=== PATIENT | female | born 1955 | race Caucasian/White ===

== ENCOUNTER 2020-05-01 09:22 | Emergency (ER) | payer OTHER, BC ==
[2020-05-01 09:56] VITALS: BP 149/94; PULSE 74; TEMP 99.4; BMI 43.4
[2020-05-01 10:04] LABS: EPITHELIAL CELLS MODERATE /hpf
--- NOTE | 2020-05-01 10:17 | PDOC ---
History of Present Illness - General Chief Complaint: Pain, Acute Stated Complaint: STOMACH PAIN Time Seen by Provider: 05/01/20 09:35 History Source: Patient Exam Limitations: No Limitations - History of Present Illness Initial Comments: 05/01/20 10:13 65-year-old female history of obesity hypertension anxiety here today complaining of sudden onset epigastric pain radiating across the upper abdomen as well as to the back lasted about 30 minutes no associated nausea vomiting denies any associated chest pressure tightness or pain no shortness of breath no diaphoresis did not have any nausea or vomiting since then the pain has completely resolved. In the past she has had elevated LFTs suspected fatty liver and has been referred for an ultrasound of the gallbladder for suspected cholelithiasis however has not had the test performed yet. Patient states she is extremely anxious and nervous to undergo any sort of tests or surgeries therefore has put off many of her outpatient screening examinationsDenies any fevers chills nausea vomiting no urinary complaints Past History - Medical History Allergies/Adverse Reactions: Allergies Allergy/AdvReac Type Severity Reaction Status Date / Time Sulfa (Sulfonamide Allergy Verified 05/01/20 09:23 Antibiotics) Home Medications: Ambulatory Orders Alprazolam [Xanax -] 0.5 mg PO TID PRN 12/02/13 Calcium Carbonate [Gaviscon] 200 mg PO DAILY 12/02/13 Hydrochlorothiazide [Hctz -] 1 tab PO DAILY 12/02/13 Metoprolol Succinate [Toprol XL -] 1 tab PO DAILY 12/02/13 Ramipril 1 tab PO DAILY 12/02/13 COPD: No Disorders: Yes (ACID REFLUX) HTN: Yes Psychiatric Problems: Yes (ANXIETY) - Reproductive History Is Patient Now?: No - Psycho-Social/Smoking History Smoking History: Never smoked Have you smoked in the past 12 months: No Number of Cigarettes Smoked Daily: 0 Information on smoking cessation initiated: Yes - Substance Abuse Hx (Audit-C & DAST Scrn) How often the patient has a drink containing alcohol: Never Score: In Men: 4 or > Positive; In Women: 3 or > Positive: 0 Screen Result (Pos requires Nsg. Audit-10AR): Negative In the last yr the pt used illegal drug/Rx for NonMed reason: No Score: Yes response is considered Positive: 0 Screen Result (Positive result requires Nsg. DAST-10): Negative Review of Systems - Review of Systems Constitutional: No: Chills, Fever HEENTM: No: Eye Pain Respiratory: No: Cough, Shortness of Breath Cardiac (ROS): No: Chest Pain ABD/GI: Yes: Abdominal cramping, Other. No: Diarrhea, Nausea, Vomiting : No: Burning, Dysuria, Discharge Musculoskeletal: No: Back Pain, Gout, Joint Pain All Other Systems: Reviewed and Negative *Physical Exam - Vital Signs Last Vital Signs Temp Pulse Resp BP Pulse Ox 99.4 F 74 20 149/94 98 05/01/20 09:23 05/01/20 09:23 05/01/20 09:23 05/01/20 09:23 05/01/20 09:23 - Physical Exam 05/01/20 10:15 Awake alert no acute distress lungs are clear bilaterally heart is regular 30 murmurs rubs or gallops abdomen is soft and relatively nontender there is no CVA tenderness extremities are warm well perfused patient is awake alert and oriented x3 skin is warm and dry no rash Heart Score/ECG Review #1 General ECG Interpretation: Sinus Rhythm, Normal Rate (65), Normal Intervals, No acute ischemic changes ED Treatment Course - LABORATORY CBC & Chemistry Diagram: 05/01/20 10:34 05/01/20 10:34 - ADDITIONAL ORDERS Additional order review: Laboratory Results 05/01/20 09:41 Urine Color Prema Urine Appearance Clear Urine pH 6.0 Urine Protein 1+ H Urine Glucose (UA) Negative Urine Ketones Negative Urine Blood Trace-intact Urine Nitrite Negative Urine Bilirubin 2+ H Urine Urobilinogen 1.0 Ur Leukocyte Esterase 1+ Urine RBC 2-5 Urine WBC 60-80 Ur Transition Epith Cell Moderate Urine Bacteria Moderate Medical Decision Making - Medical Decision Making 05/01/20 10:15 65-year-old female history of obesity hypertension abnormal LFTs in the past suspected cholelithiasis here with epigastric pain has since resolved differential includes peptic ulcer disease duodenal ulcer biliary colic pancreatitis cholecystitis considered however less likely due to the absence of tenderness on her current exam plan focused ED ultrasound basic labs including LFTs and lipase CBC UA to rule out UTI or Antonio Focused ED ultrasound was performed shows multiple large gallstones through majority of the gallbladder lumen. The wall is non-thickened at 3.7 mm CBD is normal for the patient's age at 5 mm negative sonographic Love's impression cholelithiasis 05/01/20 12:11 Is [address] patient's LFTs are elevated states she has had elevated LFTs in the past her bilirubin is 2.2 lipase is normal however. At this time patient states she feels much better would like to go home she was offered admission for repeat LFTs in the morning as well as a GI consult and or surgery consult she would like to go home patient's primary Dr. Cai was paged awaiting callback should be given referral for Storm Gill per the patient's daughter's request she was also given a referral for Dr. Bird the forming and assembling supervisor told to schedule appointment both of them also given strict instructions to return for worsening vomiting pain with eating fevers chills or any concerns as her LFTs are abnormal Discharge - Discharge Information Problems reviewed: Yes Clinical Impression/Diagnosis: Cholelithiasis Condition: Improved Disposition: HOME - Admission No - Follow up/Referral Referrals: Сергей Bird MD [Staff Physician] - Dallas Marti MD [Staff Physician] - Kamryn Cai MD [Staff Physician] - - Patient Discharge Instructions Patient Printed Discharge Instructions: Gallstones (Alternative Therapy) Additional Instructions: You have multiple large gallstones on your ultrasound there is no sign of infection today however. But your liver function tests are abnormal this needs to be followed up very closely with a forming and assembling supervisor as well as a surgeon if you develop any persistent pain fever vomiting you to come back immediately for repeat evaluation. Your pain will worsen with starchy or fatty food meals - Post Discharge Activity
[2020-05-01 10:57] LABS: BASO % 0.2 % (0-2.0); HEMATOCRIT 42.5 % (32.4-45.2); HEMOGLOBIN 14.1 GM/dl (10.7-15.3); LYMPH % 10.3 % (8-40); MCH 29.5 pg (25.7-33.7); MCHC 33.1 g/dl (32.0-36.0); MEAN CELL VOLUME 89.4 fl (80-96); MEAN PLT VOLUME 7.2 fl (7.5-11.1); MONO % 5.5 % (3.8-10.2); PLATELET COUNT 243 K/MM3 (134-434); RBC 4.76 M/mm3 (3.60-5.2); WHITE BLOOD COUNT 6.3 K/mm3 (4.0-10.8)
[2020-05-01 11:03] LABS: ALBUMIN 3.7 g/dl (3.4-5.0); BILIRUBIN,TOTAL 2.2 mg/dl (0.2-1); CALCIUM 9.1 mg/dl (8.5-10); CREATININE 0.8 mg/dl (0.55-1.3); POTASSIUM 3.8 mmol/L (3.5-5.1); TOT PROT 7.3 g/dl (6.4-8.2)
--- NOTE | 2020-05-03 18:30 | EKG ---
Test Reason : Blood Pressure : / mmHG Vent. Rate : 065 BPM Atrial Rate : 065 BPM P-R Int : 168 ms QRS Dur : 094 ms QT Int : 410 ms P-R-T Axes : 092 -22 016 degrees QTc Int : 426 ms NORMAL SINUS RHYTHM MODERATE VOLTAGE CRITERIA FOR LVH, MAY BE NORMAL VARIANT CANNOT RULE OUT SEPTAL INFARCT , AGE UNDETERMINED ABNORMAL ECG NO PREVIOUS ECGS AVAILABLE Confirmed by FRANSICO DIAS MD ([id number]) on 05/03/2020 6:30:25 PM Referred By: JAMES GILBERT Confirmed By:FRANSICO DIAS MD
== END 2020-05-01 12:38 | disposition home or self-care (01) ==
LOC: FER 09:22
DX: K80.80 Other cholelithiasis without obstruction (principal)
CPT/HCPCS: 36415; 76705-TC; 80053; 81003; 81015; 83690; 85025; 87086; 93005; 99284-25

== ENCOUNTER 2020-06-23 07:28 | Day surgery (SDC) | payer OTHER, BC ==
--- NOTE | 2020-05-25 09:53 | HP ---
DATE OF ADMISSION: [id number] DATE OF DICTATION: 05/04/2020 REASON FOR ADMISSION: Symptomatic cholelithiasis, history of biliary colic. BRIEF HISTORY: This is a 65-year-old female who presented to [facility] approximately a week ago with acute onset of epigastric pain with radiation to the upper abdomen and back that lasted over 30 minutes. She underwent an ultrasound that demonstrated cholelithiasis without evidence of acute cholecystitis. Her LFTs were markedly elevated and it was thought that it could be related to her fatty liver; however, it could be related to her passing a stone. In any event the patient was adamant about going home and she subsequently was discharged because of her own cognition. Since discharge the patient states she has had no further issues of abdominal pain, nausea, vomiting. No change in stool color or urine color. No fever, chills or sweats. She is now here to schedule an elective cholecystectomy. PAST MEDICAL HISTORY: Significant for hypertension, anxiety disorder. She denies coronary artery disease and diabetes. PAST SURGICAL HISTORY: Patient has had surgery on her left leg. She has had no abdominal surgeries. MEDICATIONS: Alprazolam, calcium, hydrochlorothiazide, metoprolol. ALLERGIES: To SULFA. SOCIAL HISTORY: She denies tobacco and alcohol use. PHYSICAL EXAMINATION: HEENT: There is no icterus. Abdomen: Soft, nontender, nondistended. She has no right side CVA tenderness. The abdomen is obese. IMPRESSION/PLAN: Symptomatic cholelithiasis, history of biliary colic. This is a 65-year-old female with over a 20-year history of having bouts of upper abdominal/epigastric and back pain related now retrospectively to biliary disease. Patient at this time does not have evidence of acute cholecystitis. Will plan to repeat her LFTs at this time. If they are normal, will proceed with a laparoscopic cholecystectomy electively. If the LFTs are still elevated, she will see a GI doctor and will be ruled out for a CBD stone. The indications, alternatives and complications of a laparoscopic cholecystectomy as well as an open cholecystectomy have been discussed at length. Questions have been answered. Will plan to obtain written consent the day of surgery. Shilpi HARO [id number] cc: Kamryn Cai MD
--- OUTSIDE RECORDS SUMMARY | 2020-06-23 07:31 | XMS ---
:1955 Author Organization [facility] Support Name Relationship Address Phone RE Unavailable Unavailable Unavailable YOBE Unavailable [address] [place] [address] MIMI NICOLE SON [address] [address] MIMI NICOLE Child [address] [facility] [place] [address] Re-disclosure Warning The records that you are about to access may contain information from federally- assisted alcohol or drug abuse programs. If such information is present, then the following federally mandated warning applies: This information has been disclosed to you from records protected by federal confidentiality rules (42 CFR part 2). The federal rules prohibit you from making any further disclosure of this information unless further disclosure is expressly permitted by the written consent of the person to whom it pertains or as otherwise permitted by 42 CFR part 2. A general authorization for the release of medical or other information is NOT sufficient for this purpose. The Federal rules restrict any use of the information to criminally investigate or prosecute any alcohol or drug abuse patient.The records that you are about to access may contain highly sensitive health information, the redisclosure of which is protected by Article 27-F of the [facility] Public Health law. If you continue you may haveaccess to information: Regarding HIV / AIDS; Provided by facilities licensed or operated by the [facility] Office of Mental Health; or Provided by the [facility] Office for People With Developmental Disabilities. If such information is present, then the following [facility] mandated warning applies: This information has been disclosed to you from confidential records which are protected by state law. State law prohibits you from making any further disclosure of this information without the specific written consent of the person to whom it pertains, or as otherwise permitted by law. Any unauthorized further disclosure in violation of state law may result in a fine or mcc sentence or both. A general authorization for the release of medical or other information is NOT sufficient authorization for further disclosure. Encounters Encounter Providers Location Date Indications Data Source(s ) U [id number] 02/06/2019 10:00:00 RADHA KNIGHT (Family AM EDT - 07/10/2019 [facility]) 12:51:00 PM EDT Patient discharged. Insurance Providers Payer name Policy type Policy ID Covered Covered constitution party's Policy P johny / Coverage constitution party ID relationship to [employer] type dueñas MEDICARE [id number] SP [id number] PPO [id number] SP [id number] [facility] Self Employee Plan-[facility] Results ID Date Data Source [id number] 06/19/2020 12:59:00 PM EDT [facility] Name Value Range Interpretation Description Data Sup porting Code Source(s) Document(s ) SARS [facility] coronavirus 2 RNA This lab was ordered by WYATT CORDON and reported by [facility]. Procedure
[2020-06-23 08:22] VITALS: BMI 44.2
[2020-06-23] MEDS ORDERED: DEXAMETHASONE SOD PHOSPHATE/PF 10 MG/ML SDV ONE (08:39)
[2020-06-23] MEDS ORDERED: BUPIVACAINE HCL/PF 0.5% (5 MG/ML) 30 ML VIAL IJ ONE (08:39)
[2020-06-23] MEDS ORDERED: MIDAZOLAM HCL 2 MG/2 ML SINGLE DOSE VIAL ONE (08:39)
[2020-06-23] MEDS ORDERED: SUCCINYLCHOLINE CHLORIDE 200 MG/10 ML SYRINGE ONE (09:30)
[2020-06-23] MEDS ORDERED: ceFAZolin SODIUM 1 GM VIAL ONE (09:37)
[2020-06-23] MEDS ORDERED: ONDANSETRON 4 MG/2 ML VIAL ONE ×2 (09:37→10:34)
[2020-06-23] MEDS ORDERED: DEXAMETHASONE SOD PHOSPHATE 4 MG/1 ML VIAL ONE (09:37)
[2020-06-23] MEDS ORDERED: HYDROmorphone HCL/PF 1 MG/ML VIAL ONE (09:45)
[2020-06-23] MEDS ORDERED: EPHEDRINE SULFATE/0.9% NACL/PF 50 MG/10 ML SYRINGE NR ONE (09:52)
[2020-06-23] MEDS ORDERED: NEOSTIGMINE METHYLSULFATE 0.5 MG/ML - 10 ML MDV ONE (10:34)
[2020-06-23] MEDS ORDERED: GLYCOPYRROLATE 0.2 MG/1 ML VIAL ONE (10:34)
[2020-06-23] MEDS ORDERED: ONDANSETRON 4 MG/2 ML VIAL IVPUSH PRN (11:11)
[2020-06-23] MEDS ORDERED: oxyCODONE HCL 5 MG TABLET PO PRN ×2 (11:11→12:02)
[2020-06-23] MEDS ORDERED: LACTATED RINGERS SOLUTION 1,000 ML IV SCH ×2 (11:15→12:15)
--- NOTE | 2020-06-23 11:18 | OP ---
DATE OF OPERATION: 06/23/2020 PREOPERATIVE DIAGNOSIS: Symptomatic cholelithiasis. POSTOPERATIVE DIAGNOSIS: Symptomatic cholelithiasis. PROCEDURE: Laparoscopic cholecystectomy, peritoneal lavage. SURGEON: Dallas Marti MD SUPERVISOR CUTTING AND BONING: Dick Mittal DO ANESTHESIA: Melly Black MD (general) ESTIMATED BLOOD LOSS: Minimal. SPECIMEN: Gallbladder. INDICATION FOR PROCEDURE: This is a 65-year-old female with biliary disease. She wished to have her gallbladder removed. DESCRIPTION OF PROCEDURE: Patient identified and appropriately positioned on operating table, placed under anesthesia, the abdomen prepped and draped in the usual sterile fashion with ChloraPrep. An infraumbilical incision was made below her umbilical hernia and deepened to subcutaneous tissue. The fascia was divided sharply. Under direct vision, a Veress needle followed by structural needle placed in the abdominal cavity. The remaining 3 ports placed under direct vision as well. The gallbladder identified in the right upper quadrant. It was reflected over the dome of the liver in standard fashion. Going from lateral to medial, the neck and infundibulum of the gallbladder identified, followed by the cystic duct. The cystic duct circumferentially isolated, clipped, and then divided. The cystic artery identified more medially and posteriorly, subsequently isolated, clipped, and then divided in a similar fashion. The gallbladder itself was removed from the liver bed with electrocautery. Prior to complete removal, the liver bed was irrigated, the operative field noted to be hemostatic. The specimen was placed in an EndoCatch bag and brought through the infraumbilical port site. The right upper quadrant was copiously irrigated with warm saline, the irrigant retrieved and noted to be clear. The subhepatic space was noted to be hemostatic. Ports removed. Port sites are hemostatic as well. The fascia at the infraumbilical port site reapproximated with interrupted 0 Vicryl suture, all skin closed with 4-0 subcuticular Biosyn. The patient's preoperative umbilical hernia was not repaired during this setting. At the conclusion of this case, sponge and needle counts correct. ATTESTATION: Brief operative note handwritten on the preprinted form. [facility] queried prior to giving any narcotics. Shilpi HARO [id number] cc: Kamryn Cai MD
[2020-06-23] MEDS ORDERED: morphine SULFATE 4 MG/ML VIAL IVPB PRN (12:00)
[2020-06-23] MEDS ORDERED: ALPRAZolam 0.25 MG TABLET PO PRN (12:05)
[2020-06-23] MEDS ORDERED: metoPROLOL SUCCINATE 25 MG TAB.SR.24H (FP) PO SCH (22:00)
[2020-06-24 09:55] VITALS: BP 132/76; PULSE 55; TEMP 98.6
[2020-06-24] MEDS ORDERED: ENOXAPARIN NA (PORCINE) 40 MG/0.4 ML DISP.SYRIN SQ SCH (10:00)
[2020-06-24] MEDS ORDERED: PANTOPRAZOLE SODIUM 40 MG VIAL IVPB SCH (10:00)
[2020-06-24] MEDS ORDERED: RAMIPRIL 5 MG CAPSULE PO SCH (10:00)
--- NOTE | 2020-06-24 11:04 | PN ---
Progress Note (short form) - Note Progress Note: Post op day#1.S/P Laproscopic cholecystectomy under GA uneventful.Patient stable.No any anesthesia related problem.Patient Dc from the anesthesia care.
--- NOTE | 2020-06-25 19:13 | PATH ---
Surgical Pathology Report Patient Name: JUAN NICOLE Med. Rec. #: [id number] /Age/Gender: 1955 (Age: 65) / F Account: [id number] Location: [facility] MED-SURG Taken: 06/23/2020 Received: 06/23/2020 Reported: 06/25/2020 Physicians: Dallas Marti Specimen(s) Received GALLBLADDER Clinical History Cholecytitis Final Diagnosis GALLBLADDER, LAPAROSCOPIC CHOLECYSTECTOMY: CHRONIC CHOLECYSTITIS WITH CHOLELITHIASIS. Electronically Signed Marleen Tabares M.D. Gross Description Received in formalin, labeled "gallbladder," is a 8 x 3.5 cm gallbladder with a 1 cm in length portion of cystic duct attached. The outer surface is pink-corea and varies from smooth to shaggy. The lumen contains multiple black choleliths. The mucosa is pink-corea, trabeculated, with focal area of thickening at the central portion of the specimen measuring up to 0.5 cm. Remainder of gallbladder wall measures 0.2-0.3 cm. in thickness. Construction Equipment Overhauler sections are submitted in one cassette. MLSZ/06/25/2020 sangordon/06/25/2020
== END 2020-06-24 12:00 | disposition home or self-care (01) ==
LOC: FASUSAT 07:28 → FM/S 12:49 → FASUSAT 06-24 12:00
PROVIDERS: ATTEND Surgery
PROC: 0FT44ZZ Resection of Gallbladder, Percutaneous Endoscopic Approach (ICD-10-PCS; principal; 2020-06-23 09:56)
DX: K80.80 Other cholelithiasis without obstruction (principal); I10 Essential (primary) hypertension; F41.9 Anxiety disorder, unspecified
CPT/HCPCS: 88304-TC; 94760